=== PATIENT | male | born 1965 | race Caucasian/White ===

== ENCOUNTER 2017-01-03 23:32 | Emergency (ER) | payer OTHER ==
[2017-01-04] MEDS ORDERED: Sodium Chloride 0.9% 1,000 ML IV ONE ×2 (00:10→00:11)
[2017-01-04] MEDS ORDERED: Sodium Chloride 0.9% 2,000 ML ONE (00:22)
[2017-01-04 00:34] LABS: BASO % 0.2 % (0.0-2.0); EOS % 0.8 % (0.0-4.0); HEMOGLOBIN 14.1 g/dL (12.0-18.0); LYMPH # 0.3 K/uL (1.0-4.3); LYMPH % 4.6 % (20.0-40.0); MEAN CELL VOLUME 87.9 fL (80.0-94.0); MEAN CORPUSCULAR HEMOGLOBIN 29.6 pg (27.0-31.0); MEAN CORPUSCULAR HGB CONC 33.7 g/dL (33.0-37.0); MEAN PLATELET VOLUME 8.1 fL (7.2-11.7); MONO # 0.4 K/uL (0.0-0.8); MONO % 8.1 % (0.0-10.0); NEUT # 4.7 K/uL (1.8-7.0); NEUT % 86.3 % (50.0-75.0); PLATELET COUNT 141 K/uL (130-400); RBC 4.76 Mil/uL (4.40-5.90); RED CELL DISTRIBUTION WIDTH 13.3 % (11.5-14.5); WHITE BLOOD COUNT 5.5 K/uL (4.8-10.8)
[2017-01-04 00:46] LABS: ALB/GLOB RATIO 1.5 (1.0-2.1); ALBUMIN 4.1 g/dL (3.5-5.0); ALT/SGPT 36 U/L (21-72); AST/SGOT 20 U/L (17-59); BLOOD UREA NITROGEN 22 mg/dL (9-20); CALCIUM 8.9 mg/dl (8.6-10.4); GFR AFRICAN-AMERICAN > 60; GFR NON-AFRICAN AMERICAN > 60
--- NOTE | 2017-01-04 01:06 | C.PDOC ---
History Of Present Illness A 51 y/o M c/o generalized body aches with associated nausea and productive cough that began today. Denies fever, chills, abdominal pain, chest pain, SOB, or any other complaints. Time Seen by Provider: 01/04/17 01:04 Chief Complaint (Nursing): Dizziness/Lightheaded History Per: Patient History/Exam Limitations: no limitations Onset/Duration Of Symptoms: Hrs Current Symptoms Are (Timing): Still Present Severity: Mild Recent travel outside of the [place]: No Additional History Per: Patient Past Medical History Reviewed: Historical Data, Nursing Documentation, Vital Signs Vital Signs: Last Vital Signs Temp 100.4 F H 01/04/17 00:26 Pulse 70 01/03/17 23:49 Resp 18 01/03/17 23:49 BP 102/63 01/03/17 23:49 Pulse Ox 97 01/04/17 02:48 Family History: States: Unknown Family Hx - Social History Hx Alcohol Use: No Hx Substance Use: No - Immunization History Hx Influenza Vaccination: No Review Of Systems Except As Marked, All Systems Reviewed And Found Negative. Constitutional: Positive for: Weakness. Negative for: Fever, Chills Cardiovascular: Negative for: Chest Pain Respiratory: Positive for: Cough. Negative for: Shortness of Breath Gastrointestinal: Positive for: Nausea. Negative for: Abdominal Pain Physical Exam - Physical Exam Appears: Non-toxic, No Acute Distress Skin: Warm, Dry Head: Atraumatic, Normacephalic Eye(s): bilateral: Normal Inspection Cardiovascular: Rhythm Regular Respiratory: No Rales, Rhonchi, No Wheezing Gastrointestinal/Abdominal: Soft, No Tenderness Neurological/Psych: Oriented x3, Normal Speech, Normal Cognition ED Course And Treatment - Laboratory Results Result Diagrams: 01/04/17 00:30 01/04/17 00:30 O2 Sat by Pulse Oximetry: 97 (RA) Pulse Ox Interpretation: Normal - Radiology CXR: Interpreted by Me CXR Interpretation: Yes: Other (inc. BV markings) Medical Decision Making Medical Decision Making: impression: 51 y/o M c/o generalized body aches with associated nausea and productive cough that began today. Plans: -EKG -Blood labs -CXR -Tylenol -IV fluids Disposition Counseled Patient/Family Regarding: Diagnosis - Disposition Referrals: [facility] [Outside] Disposition: HOME/ ROUTINE Disposition Time: 02:43 Condition: STABLE Additional Instructions: increased fluids by mouth. Prescriptions: Azithromycin [Z-Jay] 250 mg PO DAILY #6 tab Ibuprofen [Motrin Tab] 600 mg PO Q6 #14 tab Instructions: Acute Bronchitis (ED), Fever in Adults (GEN) - POA Present On Arrival: None - Clinical Impression Clinical Impression: Bronchitis, Fever - Scribe Statement The provider has reviewed the documentation as recorded by the Scribe Gregory franco All medical record entries made by the Namanibcirilo were at my direction and personally dictated by me. I have reviewed the chart and agree that the record accurately reflects my personal performance of the history, physical exam, medical decision making, and the department course for this patient. I have also personally directed, reviewed, and agree with the discharge instructions and disposition.
[2017-01-04 02:00] LABS: BANDS 2 % (0-2); LYMPHOCYTE 5 % (20-40); MONOCYTE 8 % (0-10); NEUTROPHIL 85 % (50-75); PLATELET ESTIMATE NORMAL (NORMAL); TOTAL CELLS COUNTED 100
--- NOTE | 2017-01-04 11:20 | RAD ---
HISTORY: SOB COMPARISON: No prior. TECHNIQUE: Chest PA and lateral FINDINGS: LUNGS: No active pulmonary disease. PLEURA: No significant pleural effusion identified. No pneumothorax apparent. CARDIOVASCULAR: Normal. OSSEOUS STRUCTURES: No significant abnormalities. VISUALIZED UPPER ABDOMEN: Normal. OTHER FINDINGS: None. IMPRESSION: No active disease.
[2017-01-04 12:20] VITALS: BP 104/64; PULSE 75; RESP 18; TEMP 97.9; O2SAT 95
--- NOTE | 2017-01-06 12:46 | CARD ---
APPROVED REPORT EKG Measurement Heart [id number] <Conclusion> Normal sinus rhythm Incomplete right bundle branch block Borderline ECG
== END 2017-01-04 03:09 | disposition home or self-care (01) ==
LOC: C.ER 23:32
DX: J40 Bronchitis, not specified as acute or chronic (principal); R50.9 Fever, unspecified
CPT/HCPCS: 71020; 80053; 85025; 87804; 93005; 96360; 99285; J7040

== ENCOUNTER 2017-09-21 12:01 | Emergency (ER) | payer OTHER ==
[2017-09-21 12:09] VITALS: BP 131/75; PULSE 73; RESP 20; TEMP 98.1; O2SAT 95
[2017-09-21] MEDS ORDERED: Albuterol 0.083% Inhal Sol (2.5 mg/3 mL) UD IH STA (12:25)
[2017-09-21] MEDS ORDERED: Promethazine/Cod 6.25mg-10mg/5ml Syr UD PO STA (12:25)
[2017-09-21] MEDS ORDERED: Promethazine/Cod 6.25mg-10mg/5ml Syr UD ONE (12:45)
[2017-09-21] MEDS ORDERED: Albuterol 0.083% Inhal Sol (2.5 mg/3 mL) UD ONE (12:48)
--- NOTE | 2017-09-21 12:49 | C.PDOC ---
History Of Present Illness 52 yo male w/o significant PMHx come in for evaluation of cold sx for past 2 weeks associated with nasal congestion, dry cough gradually worsen over time. Pt sts, " feel chest tightness with coughing now". Otherwise, pt denies high fever, chills, headache, dizziness, neck pain, CP, SOB, dyspnea, wheezing, palpitation, abd. pain, V/D, back pain, UTI sx, denies recent travel. or known sick contact. AT the time of evaluation, pt appears comfortable, not in resp. distress. HPI: Influenza Time Seen by Provider: 09/21/17 12:15 Chief Complaint: Cough, Cold, Congestion History Per: Patient Past Medical History Reviewed: Historical Data, Nursing Documentation, Vital Signs Vital Signs: Last Vital Signs Temp 98.1 F 09/21/17 12:05 Pulse 73 09/21/17 12:05 Resp 20 09/21/17 12:05 BP 131/75 09/21/17 12:05 Pulse Ox 95 09/21/17 12:05 - Medical History PMH: No Chronic Diseases Family History: States: Unknown Family Hx - Social History Hx Tobacco Use: No (quit 10 yrs ago) Hx Alcohol Use: Yes Hx Substance Use: No - Immunization History Hx Influenza Vaccination: Yes Hx Pneumococcal Vaccination: Yes Review Of Systems Except As Marked, All Systems Reviewed And Found Negative. Constitutional: Negative for: Fever, Chills ENT: Positive for: Nose Discharge, Nose Congestion. Negative for: Ear Discharge , Throat Pain, Throat Swelling Cardiovascular: Negative for: Chest Pain, Palpitations, Edema, Light Headedness Respiratory: Positive for: Cough. Negative for: Shortness of Breath, Wheezing Gastrointestinal: Negative for: Nausea, Vomiting, Abdominal Pain Genitourinary: Negative for: Dysuria, Incontinence Musculoskeletal: Negative for: Neck Pain Skin: Negative for: Rash Neurological: Negative for: Weakness, Altered Mental Status, Headache, Dizziness Physical Exam - Physical Exam Appears: Well, Non-toxic, No Acute Distress Skin: Normal Color, Warm, Dry, No Rash Head: Normacephalic Eye(s): bilateral: PERRL Ear(s): Bilateral: Normal Nose: No Flaring, Discharge (B/l nasal congestion) Oral Mucosa: Moist, No Drooling Tongue: Normal Appearing Throat: No Erythema, No Drooling Neck: Trachea Midline, Supple Cardiovascular: Rhythm Regular, No Murmur, No JVD Respiratory: No Decreased Breath Sounds, No Accessory Muscle Use, No Stridor, Wheezing (scattered Right base expiratory wheezing) Gastrointestinal/Abdominal: Soft, No Tenderness, No Distention, No Guarding Back: No CVA Tenderness Extremity: No Pedal Edema, No Deformity Neurological/Psych: Oriented x3, Normal Speech - ECG ECG: Positive for: Interpreted By Me, Viewed By Me Interpretation Of ECG: SR@60/min,NAD, RBBB, no acute T wave or ST-T changes. O2 Sat by Pulse Oximetry: 95 Pulse Ox Interpretation: Normal - Radiology X-Ray: Interpreted by Me, Viewed By Me X-Ray Interpretation: No Acute Disease - Progress ED Course And Treament: On re-eval, pt is afebrile, hemodynamicaly stable. Non-toxic. PulseOx 95% RA, non-tachypnic. neck: Supple, (-) meningeal sign, (-) carotid bruits B/L ENT: no acute findings Lungs: CTA B/L, BS equyal B/L. CVS: (+)S1S2, reg. Abd: benign, (-) guarding, (-) rebound Neurologicaly intact. CXR review and appears normal. Pt has clinical findings c/w acute bronchitis. Pt advised. ref. to f/u with PMD in 2-3 days for re-eavl. return to ED if nay worsening or new changes Disposition Counseled Patient/Family Regarding: Studies Performed, Diagnosis, Need For Followup, Rx Given - Disposition Referrals: Ceasar Abdalla MD [Medical Doctor] - Disposition: HOME/ ROUTINE Disposition Time: 13:00 Condition: STABLE Additional Instructions: Encourage fluids Take medication as prescribed Follow up with PMD in 2-3 days for re-evaluation. return to ED if any worsening or new changes. Prescriptions: Albuterol HFA [Ventolin HFA 90 mcg/actuation (8 g)] 1 puff IH Q6 #1 inhaler Azithromycin [Zithromax] 250 mg PO DAILY #4 tab Benzonatate [Tessalon Perle] 100 mg PO TID #14 capsule Prednisone [Deltasone] 40 mg PO DAILY #6 tablet Instructions: Acute Bronchitis Print Language: COOK ISLANDER - Clinical Impression Clinical Impression: Bronchitis
--- NOTE | 2017-09-21 15:26 | RAD ---
HISTORY: Cough COMPARISON: Comparison chest 01/04/2017 TECHNIQUE: Chest PA and lateral FINDINGS: LUNGS: Poor inspiration with low lung volumes, crowded bronchovascular markings and minor left basilar atelectasis PLEURA: No significant pleural effusion identified. No pneumothorax apparent. CARDIOVASCULAR: Normal. OSSEOUS STRUCTURES: No significant abnormalities. VISUALIZED UPPER ABDOMEN: Normal. OTHER FINDINGS: None. IMPRESSION: Poor inspiration with low lung volumes, crowded bronchovascular markings and minor left basilar atelectasis.
--- NOTE | 2017-09-22 11:53 | CARD ---
APPROVED REPORT EKG Measurement Heart [id number] <Conclusion> Normal sinus rhythm Incomplete right bundle branch block Borderline ECG
== END 2017-09-21 13:16 | disposition home or self-care (01) ==
LOC: C.ER 12:01
DX: J20.9 Acute bronchitis, unspecified (principal)

== ENCOUNTER 2018-09-02 19:10 | Emergency (ER) | payer OTHER ==
[2018-09-02 19:35] VITALS: BP 109/72; PULSE 71; RESP 20; TEMP 98.3; O2SAT 98
--- NOTE | 2018-09-02 20:41 | C.PDOC ---
History Of Present Illness 52 year old male present with right shoulder pain for the past 2 days. 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 He last took an advil at 6am. Time Seen by Provider: 09/02/18 19:34 Chief Complaint (Nursing): Upper Extremity Problem/Injury History Per: Patient History/Exam Limitations: no limitations Onset/Duration Of Symptoms: Days (2) Current Symptoms Are (Timing): Still Present Recent travel outside of the [place]: No Past Medical History Reviewed: Historical Data, Nursing Documentation, Vital Signs Vital Signs: Last Vital Signs Temp 98.3 F 09/02/18 19:29 Pulse 71 09/02/18 19:29 Resp 20 09/02/18 19:29 BP 109/72 09/02/18 19:29 Pulse Ox 98 09/02/18 19:29 Family History: States: Unknown Family Hx - Social History Hx Tobacco Use: No (quit 10 yrs ago) Hx Alcohol Use: Yes Hx Substance Use: No - Immunization History Hx Influenza Vaccination: Yes Hx Pneumococcal Vaccination: Yes Review Of Systems Constitutional: Negative for: Fever, Chills Eyes: Negative for: Pain, Redness ENT: Negative for: Mouth Swelling Cardiovascular: Negative for: Chest Pain, Palpitations Respiratory: Negative for: Cough, Shortness of Breath Gastrointestinal: Negative for: Nausea, Vomiting, Diarrhea Genitourinary: Negative for: Dysuria, Hematuria Musculoskeletal: Positive for: Shoulder Pain (Right) Skin: Negative for: Rash Neurological: Negative for: Weakness, Numbness Physical Exam - Physical Exam Appears: Well, Non-toxic, No Acute Distress Skin: Normal Color, Warm Head: Atraumatic, Normacephalic Eye(s): bilateral: Normal Inspection, PERRL, EOMI Neck: Normal ROM, No Midline Cervical Tenderness, No Paracervical Tenderness, Supple Chest: Symmetrical Respiratory: No Accessory Muscle Use, Other (Normal inspiratory effort) Gastrointestinal/Abdominal: Soft, No Distention Extremity: Capillary Refill (<2 seconds), Other (No pain with passive ROM but active ROM causes pain to right trapezius over ac joint. No deformity, no pain distally.) Pulses: Left Radial: Normal, Right Radial: Normal Neurological/Psych: Oriented x3, Normal Speech, Normal Cranial Nerves (Grossly intact), Normal Motor, Normal Sensation Gait: Steady ED Course And Treatment O2 Sat by Pulse Oximetry: 98 - Other Rad Right shoulder x-ray X-Ray: Interpreted by Me, Viewed By Me Interpretation: no acute fracture or dislocation Medical Decision Making Medical Decision Making: x-rays were negative, pain meds given, stable for dc to follow up with primary. Disposition Counseled Patient/Family Regarding: Studies Performed, Diagnosis, Need For Followup, Rx Given - Disposition Referrals: Kaleigh Longoria MD [Staff Provider] - Disposition: HOME/ ROUTINE Disposition Time: 20:39 Condition: STABLE Prescriptions: Cyclobenzaprine [Flexeril] 10 mg PO BID #10 tab Ibuprofen [Motrin Tab] 600 mg PO TID #21 tab Instructions: Radiculopathy (DC) Forms: Gen Discharge Inst Sammarinese, LOVEThESIGN (Sammarinese), Work Excuse Print Language: BELIZEAN - Clinical Impression Clinical Impression: Radicular pain of shoulder - PA / OUTSOLE SKIVER / Resident Statement MD/DO has reviewed & agrees with the documentation as recorded. - Scribe Statement The provider has reviewed the documentation as recorded by the Scribe Denny Najera All medical record entries made by the Scribe were at my direction and personally dictated by me. I have reviewed the chart and agree that the record accurately reflects my personal performance of the history, physical exam, medical decision making, and the department course for this patient. I have also personally directed, reviewed, and agree with the discharge instructions and disposition.
--- NOTE | 2018-09-03 08:42 | RAD ---
Date of service: 09/02/2018 PROCEDURE: Radiographs of the Right Shoulder HISTORY: pain COMPARISON: No prior. FINDINGS: BONES: No fracture seen JOINTS: A trace glenohumeral joint arthrosis. Tuberosity subchondral sclerosis present. Greater sclerosis lateral clavicle-subarticular. SOFT TISSUES: Normal. OTHER FINDINGS: None. IMPRESSION: Right shoulder arthrosis-acromioclavicular joint most notable with the lateral clavicle sclerotic accentuation.
== END 2018-09-02 20:55 | disposition home or self-care (01) ==
LOC: C.ER 19:10
DX: M25.511 Pain in right shoulder (principal)

== ENCOUNTER 2018-10-24 16:20 | Emergency (ER) | payer OTHER ==
[2018-10-24 16:42] VITALS: BP 150/74; TEMP 98.2
[2018-10-24] MEDS ORDERED: Naproxen 550 mg Tab PO STA (16:42)
[2018-10-24] MEDS ORDERED: Naproxen 550 mg Tab PO ONE (16:49)
--- NOTE | 2018-10-24 17:58 | C.PDOC ---
History Of Present Illness 53 y/o male presents to ED complaining of left shoulder and upper chest pain that started yesterday. 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 Denies SOB, cough, fever, or palpitations. Patient tried taking advil but without relief. Time Seen by Provider: 10/24/18 16:24 Chief Complaint (Nursing): Chest Pain History Per: Patient History/Exam Limitations: no limitations Onset/Duration Of Symptoms: Days Current Symptoms Are (Timing): Still Present Past Medical History Reviewed: Historical Data, Nursing Documentation, Vital Signs Vital Signs: Last Vital Signs Temp 98.2 F 10/24/18 16:30 Pulse 75 10/24/18 16:30 Resp 19 10/24/18 16:30 BP 150/74 10/24/18 16:30 Pulse Ox 97 10/24/18 16:30 Primary Care Provider: Ceasar Abdalla Surgical History: Tonsillectomy Family History: States: No Known Family Hx - Social History Hx Tobacco Use: No (quit 10 yrs ago) Hx Alcohol Use: Yes Hx Substance Use: No - Immunization History Hx Influenza Vaccination: Yes Hx Pneumococcal Vaccination: Yes Review Of Systems Constitutional: Negative for: Fever, Chills Cardiovascular: Positive for: Chest Pain (upper chest). Negative for: Palpitations Respiratory: Negative for: Cough, Shortness of Breath Gastrointestinal: Negative for: Nausea, Vomiting Musculoskeletal: Positive for: Shoulder Pain (Left) Physical Exam - Physical Exam Appears: Non-toxic, No Acute Distress Skin: Warm, Dry Head: Atraumatic, Normacephalic Eye(s): bilateral: Normal Inspection, PERRL Oral Mucosa: Moist Neck: Other (tenderness to palpation along left lateral neck, left anterior shoulder, and left upper chest; no rash or ecchymosis) Cardiovascular: Rhythm Regular, No Murmur Respiratory: Normal Breath Sounds, No Rales, No Rhonchi, No Wheezing Extremity: Bilateral: Atraumatic, Normal ROM ED Course And Treatment ECG: Interpreted By Me, Viewed By Me ECG Rhythm: Sinus Rhythm Interpretation Of ECG: Normal axis. No acute ST/T wave changes. Rate From EC O2 Sat by Pulse Oximetry: 97 (RA) Pulse Ox Interpretation: Normal Progress Note: EKG and chest XR ordered. Gave naproxen and flexeril. Patient will be discharged home. Disposition Counseled Patient/Family Regarding: Studies Performed, Diagnosis, Need For Followup, Rx Given - Disposition Referrals: Ceasar Abdalla MD [Medical Doctor] - Disposition: HOME/ ROUTINE Disposition Time: 18:15 Condition: STABLE Additional Instructions: FOLLOW UP WITH THE MEDICAL CLINIC IN 1-2 DAYS USE MEDICATIONS DIRECTED RETURN TO EMERGENCY ROOM IF YOUR SYMPTOMS BECOME WORSE SEGUIR CON LA CLNICA MDICA EN 1-2 LOPEZ UTILICE MEDICAMENTOS ROSANGELA SE DIRIGE VUELVA A LA SARAH DE EMERGENCIA SI CURTIS SNTOMAS SE HACEN PEOR Prescriptions: Cyclobenzaprine [Flexeril] 10 mg PO BID PRN #15 tab PRN Reason: Muscle Spasm Naproxen 375 mg PO BID PRN #20 tablet PRN Reason: pain Instructions: Costochondritis (DC), Muscle Strain (DC) Forms: Pantry (Luxembourgish) Print Language: TURKISH - Clinical Impression Clinical Impression: Chest wall pain, Muscle strain of chest wall - Scribe Statement The provider has reviewed the documentation as recorded by the Anupama Ng Provider Attestation: All medical record entries made by the Namanibcirilo were at my direction and personally dictated by me. I have reviewed the chart and agree that the record accurately reflects my personal performance of the history, physical exam, medical decision making, and the department course for this patient. I have also personally directed, reviewed, and agree with the discharge instructions and disposition.
[2018-10-24 18:34] VITALS: PULSE 80; RESP 18; O2SAT 98
--- NOTE | 2018-10-25 10:32 | RAD ---
Date of service: 10/24/2018 HISTORY: left upper chest/shoulder pain COMPARISON: Comparison is made with 09/21/2017 TECHNIQUE: Chest PA and lateral views FINDINGS: LUNGS: No evidence of new infiltrate or consolidation in the lungs. PLEURA: No significant pleural effusion identified. No pneumothorax apparent. CARDIOVASCULAR: No aortic atherosclerotic calcification present. Normal cardiac size. No pulmonary vascular congestion. OSSEOUS STRUCTURES: No significant abnormalities. VISUALIZED UPPER ABDOMEN: Normal. OTHER FINDINGS: None. IMPRESSION: No active disease.
--- NOTE | 2018-10-26 19:48 | CARD ---
APPROVED REPORT Date of service: 10/24/2018 EKG Measurement Heart [id number] [place] [id number] <Conclusion> Normal sinus rhythm Normal ECG
== END 2018-10-24 18:31 | disposition home or self-care (01) ==
LOC: C.ER 16:20
DX: S29.011A Strain of muscle and tendon of front wall of thorax, initial encounter (principal); X58.XXXA Exposure to other specified factors, initial encounter; R07.89 Other chest pain